=== PATIENT | male | born 1985 | race Two or more races ===

== ENCOUNTER 2024-09-21 04:18 | Emergency (ER) | payer SELFPAY ==
[~2024-09-21] VITALS: Ht 170.2 cm; Wt 72.6 kg
[2024-09-21] MEDS ORDERED: KETOROLAC TROMETHAMINE INJ 30 MG/ML VIAL ONE (05:19)
[2024-09-21] MEDS: KETOROLAC TROMETHAMINE INJ 30 MG/ML VIAL IM ONE (05:22)
[2024-09-21] MEDS: IV NS 0.9% 1,000 ML IV ONE (06:31)
[2024-09-21 06:37] LABS: PLATELET COUNT (AUTO) 219 K/uL (150-450); RED BLOOD CELL COUNT(AUTO) 4.93 MIL/uL (4.5-6.0); RED CELL DISTRIBUTION WIDTH 14.0 % (11.5-15.0); WHITE BLOOD COUNT (AUTO) 5.9 K/uL (4.3-11.0)
[2024-09-21 06:54] LABS: ALCOHOL, BLOOD 253.0 mg/dL (0-10); ASPARTATE AMINOTRANSFERASE 21.0 U/L (15-37); CALCIUM, SERUM 8.5 mg/dL (8.5-10.1); CREATININE 0.8 mg/dL (0.6-1.3); SODIUM SERUM 143.0 mmol/L (136-145); TOTAL PROTEIN, SERUM 8.0 g/dL (6.4-8.2); UREA NITROGEN, BLOOD 7.0 mg/dL (7-18)
[2024-09-21 07:11] LABS: APPEARANCE,URINE CLEAR (CLEAR); BLOOD, URINE NEGATIVE Ery/uL (NEGATIVE); LEUKOCYTE ESTERASE ,URINE NEGATIVE (NEGATIVE); NITRITE, URINE NEGATIVE (NEGATIVE); UGLUCOSE NEGATIVE (NEGATIVE)
[2024-09-21 07:17] LABS: AMPHETAMINE, URINE NEGATIVE (NEGATIVE); BARBITURATE, URINE NEGATIVE (NEGATIVE); BENZODIAZEPINE, URINE NEGATIVE (NEGATIVE); CANNABINOID, URINE NEGATIVE (NEGATIVE); COCCAINE, URINE NEGATIVE (NEGATIVE); OPIATE, URINE NEGATIVE (NEGATIVE)
[2024-09-21 10:29] VITALS: BP 131/66; TEMP 98.2; O2SAT 98
== END 2024-09-21 10:30 | disposition home or self-care (01) ==
LOC: ER 04:28
DX: R51.9 Headache, unspecified (principal); R55 Syncope and collapse; Z79.899 Other long term (current) drug therapy
CPT/HCPCS: 99285; 96372; 96360; 93005; 71045; 70450; 85025; 81003; 36415; 80053; 84484; 80320; 80307; J1885; G0480